=== PATIENT | female | born 1990 | race American Indian/Alaskan Native ===

== ENCOUNTER 2018-11-07 12:11 | Emergency (ER) | payer OTHER ==
[2018-11-07 12:20] VITALS: BP 144/85
[2018-11-07] MEDS ORDERED: IBUPROFEN PO ONE (12:21)
--- NOTE | 2018-11-07 12:21 | Emergency Department Report ---
Chief Complaint: Skin/Abscess/Foreign Body Stated Complaint: ABSCESS ON BUTTOCK Time Seen by Provider: 11/07/18 12:19 - HPI History of Present Illness: recurrent rectal abscess tearful w pain lmp 2 days ago ended G0 pmh abscess VSS MSE completed - Exam Vital Signs: Vital Signs 11/07/18 12:18 Temperature 98.3 F Pulse Rate 106 H Respiratory 20 Rate Blood Pressure 144/85 O2 Sat by Pulse 99 Oximetry MSE screening note: Focused history and physical exam performed. Due to findings the following was ordered: ED Disposition for MSE Condition: Stable
[2018-11-07] MEDS ORDERED: NORCO 10/325 PO ONE (13:18)
[2018-11-07] MEDS ORDERED: MARCAINE 0.5% INFILTRATI ONE (13:18)
[2018-11-07 13:29] LABS: Basophils % (Auto) 0.5 % (0.0-1.8); Eosinophils # (Auto) 0.1 K/mm3 (0.0-0.4); Eosinophils % (Auto) 0.9 % (0.0-4.3); Hematocrit 34.9 % (30.3-42.9); Hemoglobin 11.6 gm/dl (10.1-14.3); Lymphocytes # (Auto) 1.4 K/mm3 (1.2-5.4); Lymphocytes % (Auto) 15.6 % (13.4-35.0); Mean Corpuscular HGB Conc 33 % (30-34); Mean Corpuscular Volume 81 fl (79-97); Monocytes # (Auto) 0.6 K/mm3 (0.0-0.8); Monocytes % (Auto) 6.7 % (0.0-7.3); Platelet Count 187 K/mm3 (140-440); Red Blood Count 4.29 M/mm3 (3.65-5.03); Red Cell Distribution Width 16.5 % (13.2-15.2)
--- NOTE | 2018-11-07 13:35 | Emergency Department Report ---
Abscess Boil HPI - HPI Chief Complaint: Skin/Abscess/Foreign Body Stated Complaint: ABSCESS ON BUTTOCK Time Seen by Provider: 11/07/18 12:19 Duration: 2 Days Location: Other (left side buttock area) Severity: Mild History: Yes Pain, No Fever, No Purulent Drainage, No Numbness, No Foreign Body, No Previous History, No Insect Bite HPI: This is a 28-year-old female nontoxic, well nourished in appearance, no acute signs of distress presents to the ED with c/o of left sided buttock area abscess. Patient stated has history of this and had previous incision and drainage to the area. Patient denies any pus, drainage, fever, chills, nausea vomiting, headache or stiff neck. Patient denies any allergies or significant past medical history. Home Medications: Previous Rx's Medication Instructions Recorded Last Taken Type Acetaminophen/Codeine [Tylenol 1 tab PO Q6H PRN #12 tab 11/07/18 Unknown Rx /Codeine # 3 tab] Clindamycin [Clindamycin CAP] 300 mg PO Q8H #21 cap 11/07/18 Unknown Rx Allergies/Adverse Reactions: Allergies Allergy/AdvReac Type Severity Reaction Status Date / Time No Known Allergies Allergy Unverified 11/07/18 12:13 ED Review of Systems ROS: Stated complaint: ABSCESS ON BUTTOCK Other details as noted in HPI Constitutional: denies: chills, fever Eyes: denies: eye pain, eye discharge, vision change ENT: denies: ear pain, throat pain Respiratory: denies: cough, shortness of breath, wheezing Cardiovascular: denies: chest pain, palpitations Endocrine: no symptoms reported Gastrointestinal: denies: abdominal pain, nausea, diarrhea Genitourinary: denies: urgency, dysuria, discharge Musculoskeletal: denies: back pain, joint swelling, arthralgia Skin: denies: rash, lesions Neurological: denies: headache, weakness, paresthesias Psychiatric: denies: anxiety, depression Hematological/Lymphatic: denies: easy bleeding, easy bruising ED Past Medical Hx - Past Medical History Previous Medical History?: No - Surgical History Past Surgical History?: No - Social History Smoking Status: Never Smoker Substance Use Type: None - Medications Home Medications: Home Medications Medication Instructions Recorded Confirmed Last Taken Type Acetaminophen/Codeine [Tylenol 1 tab PO Q6H PRN #12 tab 11/07/18 Unknown Rx /Codeine # 3 tab] Clindamycin [Clindamycin CAP] 300 mg PO Q8H #21 cap 11/07/18 Unknown Rx ED Abscess Boil Physical Exam - Exam General: Vital signs noted. No distress. Alert and acting appropriately. Front/Back of Body, Lg (Color): 1 - Abscess present Size: 2 cm Exam: Yes Tenderness, Yes Fluctuance, Yes Normal Neurologic Exam, Yes Normal Circulation, No Surrounding Cellulites/Erythema, No Lymphangitis, No Crepitation, No Heart Murmur I & D Note - I & D Note I & D Note: Under sterile field, I used Betadine to cleanse the area. I then used 0.5% Marcaine with 25-gauge 5/8 needle to inject area for anesthetic purposes. Total volume injected 3 mL. I then used an 11 blade to make a 1 cm incision. About 2 mL's of purulent drainage has been noted. I then used a hemostat to break the abscess formation. I then used sterile 0.9% normal saline flush to flush the wound with total volume of 40 mL used. I then put a 1/4 iodoform packing to the incision. A sterile 4 x 4 with tape has been applied as dressing. Bleeding is under control. Patient tolerated the procedure well with no signs of distress noted. ED Course Vital Signs 11/07/18 11/07/18 12:18 13:24 Temperature 98.3 F Pulse Rate 106 H Respiratory 20 18 Rate Blood Pressure 144/85 O2 Sat by Pulse 99 Oximetry - Reevaluation(s) Reevaluation #1: 11/07/18 13:34 Patient is speaking in full sentences with no signs of distress noted. Critical care attestation.: If time is entered above; I have spent that time in minutes in the direct care of this critically ill patient, excluding procedure time. ED Medical Decision Making - Lab Data Result diagrams: 11/07/18 13:08 - Medical Decision Making This is a 28-year-old female that presents with abscess. Patient is stable and was examined by me. This is incision and drainage and has been performed and patient tolerated well. A sterile dressing has been applied. Patient was educated on proper wound care. Patient is discharged with clinda and Tylenol with codeine and was instructed not to operate any machinery while taking Tylenol with codeine due to drowsiness. Patient was instructed to return in 2 days for packing removal. Patient was instructed to refer to Follow-up with a primary care doctor in 3-5 days or if symptoms worsen and continue return to emergency room as soon as possible. At time of discharge, the patient does not seem toxic or ill in appearance. No acute signs of distress noted. Patient agrees to discharge treatment plan of care. No further questions noted by the patient. ED Disposition Clinical Impression: Abscess, Encounter for incision and drainage procedure Disposition: TO HOME OR SELFCARE Is pt being admited?: No Does the pt Need Aspirin: No Condition: Stable Instructions: Abscess Incision and Drainage (ED), Abscess (ED), Acetaminophen/Codeine (By mouth) Additional Instructions: Follow-up with a primary care doctor in 3-5 days or if symptoms worsen and continue return to emergency room as soon as possible. Do not operate any machinery while taking Tylenol with codeine as this may cause drowsiness. Return in 2 days for reassessment and packing removal. Prescriptions: Clindamycin [Clindamycin CAP] 300 mg PO Q8H #21 cap Acetaminophen/Codeine [Tylenol /Codeine # 3 tab] 1 tab PO Q6H PRN #12 tab PRN Reason: Pain , Severe (7-10) Referrals: PRIMARY MD IBETH [Primary Care Provider] - 3-5 Days REGINA POSADA MD [Staff Physician] - 3-5 Days [facility] [Outside] - 3-5 Days [facility] [Outside] - 3-5 Days Forms: Work/School Release Form(ED)
[2018-11-07 13:47] LABS: BUN/Creatinine Ratio 18; Blood Urea Nitrogen 11 mg/dL (7-17); Calcium 8.7 mg/dL (8.4-10.2); Hemolysis Index 2
== END 2018-11-07 14:16 | disposition home or self-care (01) ==
LOC: ED 12:11
DX: L02.31 Cutaneous abscess of buttock (principal)
CPT/HCPCS: 36415; 80048; 84703; 85025